=== PATIENT | male | born 1955 | race Caucasian/White ===

== ENCOUNTER → 2017-05-31 08:54 | Outpatient (CLI) | payer OTHER, SELFPAY ==
[2017-05-31 10:46] LABS: AST(SGOT) 18 U/L (15-37); Alanine Aminotransfer ALT/SGPT 25 U/L (16-61); Albumin, Serum 3.8 g/dL (3.2-5.0); Alkaline Phosphatase 79 U/L (45-117); Anion Gap 7 (5-15); BUN 18 mg/dL (7-18); BUN/Creat Ratio 14.3 RATIO (10-20); Calcium,Total 8.5 mg/dL (8.5-10.1); Chloride 110 mmol/L (98-107); Cholesterol 167 mg/dL (200); Creatinine, Serum 1.26 mg/dL (0.70-1.30); EST Glomerular Filtration Rate 61 mL/min (>60); Est Glom Filt Rate - Afr Amer 74 mL/min (>60); Glucose 104 mg/dL (74-106); High Density Lipoprotein 49 mg/dL; Potassium 3.7 mmol/L (3.5-5.1); Protein, Total 7.8 g/dL (6.4-8.2); Sodium Level 143 mmol/L (136-145); Triglycerides 81 mg/dL; Very Low Density Lipoprotein 16 mg/dL (5-40)
== END ==
PROVIDERS: Family Provider Family Medicine; PCP Family Medicine; Visit Provider Family Medicine
DX: I10 Essential (primary) hypertension (principal); E78.2 Mixed hyperlipidemia
CPT/HCPCS: 36415; 80053; 80061

== ENCOUNTER → 2018-06-01 | Outpatient (CLI) | payer MEDICARE, OTHER, SELFPAY ==
[2018-06-01 12:51] LABS: ALB/GLOB Ratio 1.1 RATIO (0.9-2.4); AST(SGOT) 20 U/L (15-37); Alanine Aminotransfer ALT/SGPT 27 U/L (16-61); Alkaline Phosphatase 92 U/L (45-117); Anion Gap 7 (5-15); BUN 23 mg/dL (7-18); BUN/Creat Ratio 17.3 RATIO (10-20); Chloride 108 mmol/L (98-107); Creatinine, Serum 1.33 mg/dL (0.70-1.30); EST Glomerular Filtration Rate 57 mL/min (>60); Est Glom Filt Rate - Afr Amer 69 mL/min (>60); Globulin 3.8 g/dL (2.2-4.2); Glucose 100 mg/dL (74-106); PSA,Total - Annual Screen 3.12 ng/mL (0.00-4.00); Potassium 4.2 mmol/L (3.5-5.1); Protein, Total 7.8 g/dL (6.4-8.2); Sodium Level 142 mmol/L (136-145)
== END | disposition home or self-care (01) ==
LOC: MFPLAB 10:36
PROVIDERS: Family Provider Family Medicine; PCP Family Medicine; Referring Provider Family Medicine; Visit Provider Family Medicine
DX: I10 Essential (primary) hypertension (principal); Z12.5 Encounter for screening for malignant neoplasm of prostate
CPT/HCPCS: 36415; 80053; 84153; G0103

== ENCOUNTER → 2018-06-13 | Outpatient (CLI) | payer MEDICARE, OTHER, SELFPAY ==
[2016-12-20 17:53] VITALS: BMI 36.0
[2018-06-13 17:55] LABS: Hematocrit 44.8 % (40-54); Hemoglobin 14.8 g/dl (13.0-16.5); Mean Corpuscular Hgb 30.8 pg (27.0-32.0); Mean Corpuscular Volume 93.1 fL (80-94); Mean Platelet Vol. 11.5 fl (6.2-12.0); Platelet Count 216 K/mm3 (150-450); RBC Distribution Width CV 12.5 % (11.6-14.6); RBC Distribution Width SD 41.9 fl (35.1-43.9); Red Blood Count 4.81 M/mm3 (4.6-6.2); White Blood Count 9.2 K/mm3 (4.4-11.0)
[2018-06-13 17:56] LABS: Scan Indicated on CBC? Y/N NO
[2018-06-13 18:17] LABS: Anion Gap 6 (5-15); BUN 19 mg/dL (7-18); BUN/Creat Ratio 15.8 RATIO (10-20); Calcium,Total 9.3 mg/dL (8.5-10.1); Chloride 107 mmol/L (98-107); EST Glomerular Filtration Rate 65 mL/min (>60); Est Glom Filt Rate - Afr Amer 78 mL/min (>60); Glucose 100 mg/dL (74-106); Magnesium 2.4 mg/dL (1.6-2.6); Potassium 4.1 mmol/L (3.5-5.1); Sodium Level 141 mmol/L (136-145); Thyroid Stim Hormone (TSH) 1.09 uIU/mL (0.358-3.74)
== END | disposition home or self-care (01) ==
LOC: MFPLAB 14:44
PROVIDERS: Family Provider Family Medicine; PCP Family Medicine; Referring Provider Family Medicine; Visit Provider Family Medicine
DX: R00.2 Palpitations (principal)
CPT/HCPCS: 36415; 80048; 83735; 84443; 85027

== ENCOUNTER → 2018-12-05 11:27 | Outpatient (CLI) | payer MEDICARE, OTHER, SELFPAY ==
[2018-12-05 14:27] LABS: AST(SGOT) 17 U/L (15-37); Alanine Aminotransfer ALT/SGPT 25 U/L (16-61); Albumin, Serum 3.8 g/dL (3.2-5.0); Alkaline Phosphatase 71 U/L (45-117); Anion Gap 5 (5-15); BUN 20 mg/dL (7-18); BUN/Creat Ratio 14.5 RATIO (10-20); Calcium,Total 9.1 mg/dL (8.5-10.1); Chloride 106 mmol/L (98-107); Cholesterol 177 mg/dL (200); Creatinine, Serum 1.38 mg/dL (0.70-1.30); EST Glomerular Filtration Rate 55 mL/min (>60); Est Glom Filt Rate - Afr Amer 66 mL/min (>60); Glucose 106 mg/dL (74-106); High Density Lipoprotein 51 mg/dL; Potassium 4.4 mmol/L (3.5-5.1); Protein, Total 7.8 g/dL (6.4-8.2); Sodium Level 140 mmol/L (136-145); Triglycerides 85 mg/dL; Very Low Density Lipoprotein 17 mg/dL (5-40)
[2018-12-06 09:23] LABS: Hepatitis C Antibody Non-Reactive (Nonreactive)
== END ==
PROVIDERS: Family Provider Family Medicine; PCP Family Medicine; Visit Provider Family Medicine
DX: Z00.00 Encounter for general adult medical examination without abnormal findings (principal); I10 Essential (primary) hypertension; E78.2 Mixed hyperlipidemia; Z12.5 Encounter for screening for malignant neoplasm of prostate; Z11.59 Encounter for screening for other viral diseases
CPT/HCPCS: 36415; 80053; 80061; 84153; 86803; G0103

== ENCOUNTER → 2018-12-13 10:09 | Outpatient (CLI) | payer MEDICARE, OTHER, SELFPAY ==
--- NOTE | 2018-12-13 10:13 | US_ITS ---
PROCEDURES: ULTRASOUND AORTA REASON FOR EXAM: Male, 63 years old. Screening for abdominal aortic aneurysm. TECHNIQUE: Ultrasound evaluation of the aorta was performed with real-time and static alexander-scale imaging. COMPARISON: None. FINDINGS: There is tortuous elongation of the abdominal aorta. Aorta measures: Proximal 1.5 cm. Middle 1.9 cm. Distal 1.9 cm. Aorta measure transversely: Proximal 1.8 cm. Middle 1.9 cm. Distal 2.1 cm. Right iliac artery measures: 1.2 cm. Right iliac artery measure transversely: 1.5 cm. Left iliac artery measures: 1.1 cm. Left iliac artery measure transversely: 1.5 cm. There is no demonstrated aneurysm.. US/Aorta IMPRESSION: Normal abdominal aorta. Electronically Signed: Anders Elias, at 15:54 EST , Service support ,
== END ==
PROVIDERS: Family Provider Family Medicine; PCP Family Medicine; Referring Provider Family Medicine; Visit Provider Family Medicine
DX: Z13.6 Encounter for screening for cardiovascular disorders (principal)
CPT/HCPCS: 76775

== ENCOUNTER → 2019-06-05 10:11 | Outpatient (CLI) | payer MEDICARE, OTHER, SELFPAY ==
[2016-12-20 17:53] VITALS: BMI 36.0
[2019-06-05 12:22] LABS: Anion Gap 6 (5-15); BUN 19 mg/dL (7-18); Calcium,Total 9.2 mg/dL (8.5-10.1); Chloride 106 mmol/L (98-107); Cholesterol 213 mg/dL (200); Creatinine, Serum 1.19 mg/dL (0.70-1.30); EST Glomerular Filtration Rate 65 mL/min (>60); Est Glom Filt Rate - Afr Amer 79 mL/min (>60); Glucose 109 mg/dL (74-106); High Density Lipoprotein 54 mg/dL; Potassium 4.1 mmol/L (3.5-5.1); Sodium Level 140 mmol/L (136-145); Triglycerides 144 mg/dL; Very Low Density Lipoprotein 29 mg/dL (5-40)
== END ==
PROVIDERS: PCP Family Medicine; Referring Provider Family Medicine; Visit Provider Family Medicine
DX: I10 Essential (primary) hypertension (principal)
CPT/HCPCS: 36415; 80048; 80061

== ENCOUNTER → 2019-12-07 11:31 | Outpatient (CLI) | payer MEDICARE, OTHER, SELFPAY ==
[2016-12-20 17:53] VITALS: BMI 36.0
[2019-12-07 15:35] LABS: ALB/GLOB Ratio 0.9 RATIO (0.9-2.4); AST(SGOT) 22 U/L (15-37); Alanine Aminotransfer ALT/SGPT 30 U/L (16-61); Albumin, Serum 3.8 g/dL (3.2-5.0); Alkaline Phosphatase 94 U/L (45-117); Anion Gap 4 (5-15); BUN 20 mg/dL (7-18); BUN/Creat Ratio 14.7 RATIO (10-20); Chloride 108 mmol/L (98-107); Cholesterol 193 mg/dL (200); Creatinine, Serum 1.36 mg/dL (0.70-1.30); EST Glomerular Filtration Rate 56 mL/min (>60); Est Glom Filt Rate - Afr Amer 67 mL/min (>60); Globulin 4.3 g/dL (2.2-4.2); Glucose 102 mg/dL (74-106); High Density Lipoprotein 51 mg/dL; PSA,Total - Annual Screen 3.91 ng/mL (0.00-4.00); Potassium 4.1 mmol/L (3.5-5.1); Protein, Total 8.1 g/dL (6.4-8.2); Sodium Level 139 mmol/L (136-145); Triglycerides 108 mg/dL; Very Low Density Lipoprotein 22 mg/dL (5-40)
== END ==
PROVIDERS: PCP Family Medicine; Referring Provider Family Medicine; Visit Provider Family Medicine
DX: E78.2 Mixed hyperlipidemia (principal); Z12.5 Encounter for screening for malignant neoplasm of prostate
CPT/HCPCS: 36415; 80053; 80061; 84153; G0103

== ENCOUNTER → 2020-06-04 11:15 | Outpatient (CLI) | payer MEDICARE, OTHER, SELFPAY ==
[2016-12-20 17:53] VITALS: BMI 36.0
[2020-06-04 15:02] LABS: Absolute Lymphocyte Count 1.81 X10^3/uL (0.83-4.51); Absolute Neutrophil Count 5.9 X10^3/uL (2.0-7.7); Basophil# 0.04 X10^3/uL; Basophil% 0.5 % (0-1); Eosinophils% 1.2 % (0-5); Hematocrit 46.7 % (40-54); Hemoglobin 14.7 g/dL (13.0-16.5); Lymphocyte # 1.81 X10^3/ul (0.83-4.51); Lymphocyte % 21.4 % (19-41); Mean Corp Hgb Conc 31.5 g/dL (32-36); Mean Corpuscular Hgb 30.6 pg (27.0-32.0); Mean Corpuscular Volume 97.1 fL (80-94); Mean Platelet Vol. 11.4 fl (6.2-12.0); Monocyte# 0.58 X10^3/uL; Monocyte% 6.9 % (0-10); NRBC Flagged by Analyzer 0 % (0-5); Neutrophil % 69.8 % (47-70); Platelet Count 249 K/mm3 (150-450); RBC Distribution Width CV 12.2 % (11.6-14.6); RBC Distribution Width SD 43.9 fl (35.1-43.9); Red Blood Count 4.81 M/mm3 (4.6-6.2); White Blood Count 8.5 K/mm3 (4.4-11.0)
[2020-06-04 15:39] LABS: ALB/GLOB Ratio 0.8 RATIO (0.9-2.4); AST(SGOT) 14 U/L (15-37); Alanine Aminotransfer ALT/SGPT 25 U/L (16-61); Albumin, Serum 3.8 g/dL (3.2-5.0); Alkaline Phosphatase 99 U/L (45-117); Anion Gap 7 (5-15); BUN 19 mg/dL (7-18); BUN/Creat Ratio 13.3 RATIO (10-20); Calcium,Total 9.6 mg/dL (8.5-10.1); Chloride 104 mmol/L (98-107); Cholesterol 178 mg/dL (200); Creatinine, Serum 1.43 mg/dL (0.70-1.30); EST Glomerular Filtration Rate 52 mL/min (>60); Est Glom Filt Rate - Afr Amer 63 mL/min (>60); Globulin 4.6 g/dL (2.2-4.2); Glucose 104 mg/dL (74-106); High Density Lipoprotein 58 mg/dL; Potassium 4.2 mmol/L (3.5-5.1); Protein, Total 8.4 g/dL (6.4-8.2); Sodium Level 139 mmol/L (136-145); Triglycerides 89 mg/dL; Very Low Density Lipoprotein 18 mg/dL (5-40)
== END ==
PROVIDERS: PCP Family Medicine; Referring Provider Family Medicine; Visit Provider Family Medicine
DX: R10.9 Unspecified abdominal pain (principal); R73.01 Impaired fasting glucose; E78.2 Mixed hyperlipidemia
CPT/HCPCS: 36415; 80053; 80061; 85025

== ENCOUNTER → 2020-06-05 10:59 | Outpatient (CLI) | payer MEDICARE, OTHER, SELFPAY ==
[2020-06-07 14:08] LABS: PROEL- Albumin 3.6 g/dL (2.9-4.4); PROEL- Alpha-1 Globulin 0.3 g/dL (0.0-0.4); PROEL- Alpha-2 Globulin 0.9 g/dL (0.4-1.0); PROEL- Beta Globulin 1.2 g/dL (0.7-1.3); PROEL- Gamma Globulin 1.2 g/dL (0.4-1.8); PROEL- Globulin, Total 3.6 g/dL (2.2-3.9); PROEL- TOTAL PROTEIN 7.2 g/dL (6.0-8.5); PROELU- Albumin, Urine 49.7 % (.); PROELU- Alpha-1-Globulin,Ur 0.8 % (.); PROELU- Alpha-2-Globulin,Ur 12.6 % (.); PROELU- Beta Globulin, Ur 20.3 % (.); PROELU- Gamma Globulin, Ur 16.7 % (.); Total Protein, Ur 15.8 mg/dL (Not Estab.)
== END ==
PROVIDERS: PCP Family Medicine; Referring Provider Family Medicine; Visit Provider Family Medicine
DX: N28.9 Disorder of kidney and ureter, unspecified (principal)
CPT/HCPCS: 36415; 84165; 84166

== ENCOUNTER → 2020-12-11 14:33 | Outpatient (CLI) | payer MEDICARE, OTHER, SELFPAY ==
[2020-12-11 18:25] LABS: ALB/GLOB Ratio 0.9 RATIO (0.9-2.4); AST(SGOT) 19 U/L (15-37); Alanine Aminotransfer ALT/SGPT 32 U/L (16-61); Albumin, Serum 3.7 g/dL (3.2-5.0); Alkaline Phosphatase 88 U/L (45-117); Anion Gap 4 (5-15); BUN 16 mg/dL (7-18); BUN/Creat Ratio 12.3 RATIO (10-20); Calcium,Total 8.9 mg/dL (8.5-10.1); Chloride 105 mmol/L (98-107); EST Glomerular Filtration Rate 58 mL/min (>60); Est Glom Filt Rate - Afr Amer 71 mL/min (>60); Globulin 4.3 g/dL (2.2-4.2); Glucose 96 mg/dL (74-106); PSA,Total - Annual Screen 3.94 ng/mL (0.00-4.00); Potassium 4.1 mmol/L (3.5-5.1); Sodium Level 139 mmol/L (136-145)
== END ==
PROVIDERS: PCP Family Medicine; Referring Provider Family Medicine; Visit Provider Family Medicine
DX: R73.01 Impaired fasting glucose (principal); Z12.5 Encounter for screening for malignant neoplasm of prostate
CPT/HCPCS: 36415; 80053; 84153; G0103

== ENCOUNTER 2021-07-02 16:09 | Outpatient (CLI) | payer MEDICARE, OTHER, SELFPAY ==
--- NOTE | 2021-07-02 16:13 | RAD_ITS ---
STUDY: X-RAY - RIGHT KNEE REASON FOR EXAM: Male, 66 years old. KNEE PAIN TECHNIQUE: 4 view(s) of the knee. COMPARISON: None. FINDINGS: Normal visualized distal femur. Normal visualized proximal tibia and fibula. Normal proximal tibiofibular articulation. Normal medial femorotibial compartment. 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 There is mild degenerative arthrosis of the patellofemoral articulation. There is no demonstrated joint effusion. The soft tissue structures are unremarkable. RAD/Knee 4 or More Views IMPRESSION: Lateral dominant degenerative changes. No significant joint effusion. Electronically Signed: Philippe Pizarro MD (Brooks) at 11:29 EDT Reading Location ID and State: [facility] / [place] , Service support ,
[2021-07-02 17:58] LABS: Erythrocyte Sedimentation Rate 6 mm/hr (0-20)
[2021-07-02 18:01] LABS: Hematocrit 44.7 % (40-54); Hemoglobin 14.7 g/dL (13.0-16.5); Mean Corp Hgb Conc 32.9 g/dL (32-36); Mean Corpuscular Hgb 31.7 pg (27.0-32.0); Mean Corpuscular Volume 96.5 fL (80-94); Mean Platelet Vol. 11.6 fl (6.2-12.0); Platelet Count 215 K/mm3 (150-450); RBC Distribution Width CV 12.5 % (11.6-14.6); RBC Distribution Width SD 43.8 fl (35.1-43.9); Red Blood Count 4.63 M/mm3 (4.6-6.2); White Blood Count 6.6 K/mm3 (4.4-11.0)
[2021-07-02 18:07] LABS: Vitamin B12 398 pg/mL (211-911); Vitamin D,25 Hydroxy 22.4 ng/mL
[2021-07-02 18:13] LABS: AST(SGOT) 20 U/L (15-37); Alanine Aminotransfer ALT/SGPT 33 U/L (16-61); Alkaline Phosphatase 85 U/L (45-117); Anion Gap 4 (5-15); BUN 18 mg/dL (7-18); BUN/Creat Ratio 14.1 RATIO (10-20); Calcium,Total 8.8 mg/dL (8.5-10.1); Chloride 106 mmol/L (98-107); Creatinine, Serum 1.28 mg/dL (0.70-1.30); EST Glomerular Filtration Rate 59 mL/min (>60); Est Glom Filt Rate - Afr Amer 72 mL/min (>60); Ferritin 232 ng/mL (26-388); Globulin 4.1 g/dL (2.2-4.2); Glucose 83 mg/dL (74-106); Iron 96 ug/dL (65-175); Magnesium 2.4 mg/dL (1.6-2.6); Potassium 4.2 mmol/L (3.5-5.1); Protein, Total 8.1 g/dL (6.4-8.2); Sodium Level 139 mmol/L (136-145); Thyroid Stim Hormone (TSH) 1.12 uIU/mL (0.358-3.74)
[2021-07-04 16:39] LABS: ANTINUCLEAR ANTIBODIES DIRECT Negative (Negative)
== END 2021-07-02 23:59 | disposition home or self-care (01) ==
LOC: MTLAB 16:11
PROVIDERS: PCP Family Medicine; Referring Provider Family Medicine; Visit Provider Family Medicine
DX: M25.561 Pain in right knee (principal); G62.9 Polyneuropathy, unspecified; E55.9 Vitamin D deficiency, unspecified
CPT/HCPCS: 36415; 73564; 80053; 82306; 82607; 82728; 83540; 83735; 84443; 85027; 85652; 86038

== ENCOUNTER → 2021-11-13 | Outpatient (CLI) | payer MEDICARE, OTHER, SELFPAY ==
[2021-11-13 12:43] LABS: Vitamin B12 1110 pg/mL (211-911); Vitamin D,25 Hydroxy 47.7 ng/mL
== END | disposition home or self-care (01) ==
LOC: MFPLAB 10:12
PROVIDERS: PCP Family Medicine; Referring Provider Family Medicine; Visit Provider Family Medicine
DX: E53.8 Deficiency of other specified B group vitamins (principal); R79.89 Other specified abnormal findings of blood chemistry
CPT/HCPCS: 36415; 82306; 82607

== ENCOUNTER → 2022-02-12 | Outpatient (CLI) | payer MEDICARE, OTHER, SELFPAY ==
[2022-02-12 12:57] LABS: ALB/GLOB Ratio 1.1 RATIO (0.9-2.4); AST(SGOT) 19 U/L (15-37); Alanine Aminotransfer ALT/SGPT 32 U/L (16-61); Alkaline Phosphatase 82 U/L (45-117); Anion Gap 7 (5-15); BUN 23 mg/dL (7-18); Calcium,Total 9.3 mg/dL (8.5-10.1); Chloride 107 mmol/L (98-107); Cholesterol 207 mg/dL (200); Creatinine, Serum 1.35 mg/dL (0.70-1.30); EST Glomerular Filtration Rate 56 mL/min (>60); Est Glom Filt Rate - Afr Amer 67 mL/min (>60); Globulin 3.7 g/dL (2.2-4.2); Glucose 106 mg/dL (74-106); High Density Lipoprotein 52 mg/dL; PSA,Total - Annual Screen 4.66 ng/mL (0.00-4.00); Potassium 4.2 mmol/L (3.5-5.1); Protein, Total 7.7 g/dL (6.4-8.2); Sodium Level 140 mmol/L (136-145); Triglycerides 80 mg/dL; Very Low Density Lipoprotein 16 mg/dL (5-40)
== END | disposition home or self-care (01) ==
LOC: MFPLAB 10:15
PROVIDERS: PCP Family Medicine; Visit Provider Family Medicine
DX: Z00.00 Encounter for general adult medical examination without abnormal findings (principal); R73.01 Impaired fasting glucose; Z12.5 Encounter for screening for malignant neoplasm of prostate; I10 Essential (primary) hypertension
CPT/HCPCS: 36415; 80053; 80061; 84153; G0103

== ENCOUNTER → 2022-07-16 | Outpatient (CLI) | payer MEDICARE, OTHER, SELFPAY ==
[2022-07-16 13:13] LABS: Cholesterol 165 mg/dL (200); High Density Lipoprotein 53 mg/dL; Triglycerides 62 mg/dL; Very Low Density Lipoprotein 12 mg/dL (5-40)
[2022-07-17 12:08] LABS: PSA, Free % 20.5 % (.)
== END | disposition home or self-care (01) ==
LOC: MFPLAB 09:55
PROVIDERS: PCP Family Medicine; Visit Provider Family Medicine
DX: E78.2 Mixed hyperlipidemia (principal); R97.20 Elevated prostate specific antigen [PSA]
CPT/HCPCS: 36415; 80061; 84153; 84154

== ENCOUNTER → 2022-10-15 | Outpatient (CLI) | payer MEDICARE, OTHER, SELFPAY ==
[2022-10-15 16:38] LABS: PSA,Total- Diagnostic 4.47 ng/mL (0.0-4.0)
== END | disposition home or self-care (01) ==
LOC: MFPLAB 11:39
PROVIDERS: PCP Family Medicine; Visit Provider Family Medicine
DX: R97.20 Elevated prostate specific antigen [PSA] (principal)
CPT/HCPCS: 36415; 84153

== ENCOUNTER → 2023-04-21 | Outpatient (CLI) | payer MEDICARE, OTHER, SELFPAY ==
[2023-04-21 13:07] LABS: AST(SGOT) 23 U/L (15-37); Alanine Aminotransfer ALT/SGPT 43 U/L (16-61); Albumin, Serum 3.8 g/dL (3.2-5.0); Alkaline Phosphatase 79 U/L (45-117); Anion Gap 8 (5-15); BUN 29 mg/dL (7-18); BUN/Creat Ratio 20.7 RATIO (10-20); Chloride 107 mmol/L (98-107); Cholesterol 171 mg/dL (200); EST Glomerular Filtration Rate 53 mL/min (>60); Est Glom Filt Rate - Afr Amer 64 mL/min (>60); Glucose 126 mg/dL (74-106); High Density Lipoprotein 48 mg/dL; PSA,Total - Annual Screen 5.38 ng/mL (0.00-4.00); Protein, Total 7.8 g/dL (6.4-8.2); Sodium Level 140 mmol/L (136-145); Thyroid Stim Hormone (TSH) 1.35 uIU/mL (0.358-3.74); Triglycerides 99 mg/dL; Very Low Density Lipoprotein 20 mg/dL (5-40)
--- OUTSIDE RECORDS SUMMARY | 2023-04-21 18:25 | XMS RPT_ITS | CCD ---
Author Name Unknown Address [address] [place] [address] Organization [facility] Care Team Providers Care Integration Specialist Name Role Phone Dipesh Mcgee Primary Care Provider Medications Completed/Discontinued Medications Medication Drug Class(es) Dates Sig (Normalized) Sig (Original) ascorbic acid 1000 mg oral tablet (1 source) Vitamin C take 1 tablet by valerie once daily Ascorbic Acid (VITAMIN C) 1,000 mg ORAL tablet Indications: Traumatic arthropathy, ankle and foot Take 1,000 mg by mouth once daily. 0 Active Problems Problem Classification Problem Date Documented Da te Episodic/Chronic Joint disorders and dislocations; trauma-related (1 source) Traumatic arthropathy of the ankle and/or foot; Translations: [Traumatic arthropathy, ankle and foot] Onset: 02-18-2010 02-18-2010 Chronic Residual codes; unclassified (1 source) Pain; Translations: [Pain] Episodic Results Test Name Value Interpretation Reference Range Facil ity Encounters Encounter Date Encounter Type Care Provider Facility Start: 04-23-2020 End: 04-23-2020 Orders Only Addison Conway Dustin Work Phone: [facility] [place] [facility] Plan of Treatment Date Care Activity Detail Author Start: 10-10-2019 Influenza vaccination INFLUENZA (#1) [facility] Start: 2018 ADVANCE DIRECTIVE DISCUSSION ADVANCE DIRECTIVE DISCUSSION [facility] Start: 2018 PNEUMOVAX AGE 65 AND OVER WITH 5YR LOOKBACK (#1) PNEUMOVAX AGE 65 AND OVER WITH 5YR LOOKBACK (#1) [facility] Start: 03-07-2013 DIABETES SCREEN DIABETES SCREEN [facility] Start: 2008 PROSTATE CANCER SCRE ENING DISCUSSION PROSTATE CANCER SCREENING DISCUSSION [facility] Start: 2003 Screening for malign ant neoplasm of colon [facility] Start: 2003 SHINGRIX VACCINE (1 of 2) GAO GRIX VACCINE (1 of 2) [facility] Start: 1988 LIPID SCREEN LIPID SCREEN [facility] Start: 1972 Urine microalbumin profile DTAP,TDAP ,TD (1 - Tdap) [facility] Start: 1971 HEPATITIS C SCREENING HEPATITIS C SC KLARISSA [facility] Start: 1965 Adult depression scr eening assessment DEPRESSION SCREENING [facility] End: 05-23-2021 Radex foot complete minimum 3 views XR FOOT GENERAL 3V AP/LAT/OBL RT Radiology Routine Pain 1 Occurrences starting 04/23/2020 until 05/23/2021 [facility] Payers Date Payer Category Payer Medicare MEDICARE MEDICAR E A AND B [id number] 2018-Present [place], [place] Medicare [id number] 2018 Private Health Insurance HU[employer]NA HU[employer]NA MEDICARE SUPPLEMENT [id number] 2018-Present Indemnity [id number] Social History Date Type Detail Facility Start: 03-07-2010 Tobacco smoking stat us NCIS Never smoker [facility] Start: 03-07-2010 Alcohol intake Current non-dr grocery deliverer of alcohol (finding) [facility] Start: 1955 Sex Assigned At Not on file [facility] Medical Equipment Procedure Code Equipment Code Equipment Origin al Text Equipment Identifier Dates Graft Bn Canc 15 ml 1-4mm Fd - [id number] Start: 03-07-2010 Progress note 04-25-2020 Note Date & Type Note Facility 04-25-2020 Note HNO ID: [id number] Author: Addison Chan Service: ? Author Type: Physician Type: Progress Notes Filed: 04/25/2020 1:05 PM Note Text: April 25, 2020 HPI: Jordy Chance is a 65 yo male with chief complaint of right plantar heel pain . Pain Descriptors: Duration: one month Severity: moderate Quality: ache Location: right plantar heel Context: worse with activity Modifying Factors: Improved with rest Supporting Subjective Information Below: Estimated body mass index is 31.57 kg/m? as calculated from the following: Height as of this encounter: 177.8 cm (5' 10 ). Weight as of this encounter: 99.8 kg (220 lb). Past Medical History PAST MEDICAL HISTORY Diagnosis Date - Fracture - GERD (gastroesophageal reflux disease) - HTN (hypertension) Surgical History: PAST SURGICAL HISTORY Procedure Laterality Date - KNEE ARTHROSCOPY Family History: FAMILY HISTORY Problem Relation Age of Onset - Cancer Father Medications: Current Outpatient Medications Medication Sig - losartan (COZAAR) 50 mg tablet Take 50 mg by mouth once daily. - atorvastatin (LIPITOR) 20 mg tablet Take 20 mg by mouth once daily. - raNITIdine HCl 300 mg capsule Take 300 mg by mouth. - ubidecarenone/vitamin E mixed (COQ10 SG 100 ORAL) Take by mouth. - Ascorbic Acid (VITAMIN C) 1,000 mg ORAL tablet Take 1,000 mg by mouth once daily. - esomeprazole (NEXIUM) 40 mg ORAL capsule Take one(1) capsule daily. - triamterene-hydrochlorothiazide 37.5-25 mg ORAL per capsule Take one(1) tablet daily. No current facility-administered medications for this visit. Allergies: Patient has no known allergies. Review Of Systems GENERAL:Negative for malaise, significant weight loss and fever HEENT:Negative for frequent or significant headaches, significant changes in vision or vision problems, significant ear problems or hearing loss, nasal discharge or nose bleeds and sore throat, difficulty swallowing, mouth lesions NECK:Negative for lumps, goiter, pain and significant neck swelling RESPIRATORY: Negative for cough, wheezing and shortness of breath CARDIOVASCULAR: Negative for chest pain, leg swelling and palpitations GASTROINTESTINAL: Negative for abdominal discomfort, blood in stools or black stools and change in bowel habits GENITOURINARY: Negative for dysuria, frequency and incontinence MUSCULOSKELETAL: Negative for joint pain or swelling, back pain, and muscle pain. NEUROLOGIC:Negative for focal numbness or weakness, headaches and dizziness. SKIN:Negative for lesions, rash, and itching. PSYCHIATRIC: Negative for sleep disturbance, mood disorder and recent psychosocial stressors. HEMATOLOGIC/LYMPHATIC/IMMUNOLOGIC:Negativ e for prolonged bleeding, bruising easily, and swollen nodes. ENDOCRINE: Negative for cold or heat intolerance, polyuria, polydipsia and goiter. Physical Exam: Basic physical examination reveals the patient to be in no acute distress. The patient is alert and oriented x 3 Mood and affect are appropriate. Head is atraumatic, normocephalic. Neck ROM grossly intact. Mucous membranes are moist. Eyes, ears, and nose are normal in appearance. Hearing is grossly intact. Breathing is unlabored with grossly normal chest motion. Limited Upper Extremity Exam: Shoulders with grossly intact ROM and strength, no obvious deformity. Elbows with grossly intact ROM and strength, no obvious deformity. Hand and wrist with grossly intact ROM and strength, no obvious deformity. Focused orthopaedic examination reveals the following: Skin intact without lesions. Healed midfoot incisions Mild TTP plantar heel Arch maintained Imaging: Prior midfoot fusion, hardware intact Assessment and Plan: Right heel pain He likely has plantar fasciitis We discussed PF stretching, heel pads, avoidance of barefoot walking, Voltaren gel US guided injection if symptoms persist. Return to clinic: prn X-Ray's at next visit: No PCP: Dipesh Mcgee MD [address] [place] [id number] FELLOW / RESIDENT: No fellow or resident assisted in this office visit. I spent approximately 30 minutes in direct [id number] contact with this patient and more than 50% of the duration of this visit was spent performing direct [id number] counseling. Addison Chan MD [facility] Progress note 04-25-2020 Note Date & Type Note Facility 04-25-2020 Note HNO ID: [id number] Author: Leif Perez (Rt) Service: ? Author Type: Fishing Floats Assembler Type: Progress Notes Filed: 04/25/2020 12:29 PM Note Text: Radiology Service Progress Note PATIENT NAME: Jordy Chance DATE OF SERVICE: April 25, 2020 TIME: 12:29 PM PATIENT IDENTITY VERIFICATION COMPLETED USING TWO (2) IDENTIFIERS: Name and Date of confirmed by patient verbally. FALL SCREENING: Has the patient had 2 falls in the last year or 1 fall with injury or currently using an Ambulatory Assistive Device (Walker, Cane, Wheelchair, Crutches, etc.)? No PATIENT GENDER DATA: Male PATIENT RELEVANT IMPLANT DATA REVIEWED: Not Applicable RADIOLOGY DEPARTMENT: General X-ray: Exam(s) Completed: Lower Extremity X-Ray(s): Foot, Right: PERIPHERAL IV DATA: Not applicable SIGNED BY: Michael Ximena, RT April 25, 2020 12:29 PM [facility] Assessments Diagnosis Pain- Primary Generalized pain Summary Purpose Family History No Family History Records Found Advance Directives No Advanced Directives Records Found Additional Source Comments Source Comments (unrecognize d section and content) In the event this informatio n is protected by the Federal Confidentiality of Alcohol and Drug Abuse Patient Records regulations: The Federal rules restrict any use of the information to criminally investigate or prosecute any alcohol or drug abuse patient.[facility] (unrecognized sect ion and content) No Status Records Found INFORMATION SOURCE (unrecogn ized section and content) FOR RECORDS PERTAINING TO PATIENTS WHO ARE OR HAVE BEEN ENROLLED IN A CHEMICAL DEPENDENCY/SUBSTANCEABUSE PROGRAM, SOME INFORMATION MAY BE OMITTED. This clinical summary was aggregated from multiple sources. Caution should be exercised in using it in the provision of clinical care. This summary normalizes information from multiple sources, and as a consequence, information in this document may materially change the coding, format and clinical context of patient data. In addition, data may be omitted in some cases. CLINICAL DECISIONS SHOULD BE BASED ON THE PRIMARY CLINICAL RECORDS. [facility]. provides no warranty or guarantee of the accuracy or completeness of information in this document.
== END | disposition home or self-care (01) ==
LOC: MFPLAB 10:54
PROVIDERS: PCP Family Medicine; Visit Provider Family Medicine
DX: E11.65 Type 2 diabetes mellitus with hyperglycemia (principal); R97.20 Elevated prostate specific antigen [PSA]; Z12.5 Encounter for screening for malignant neoplasm of prostate
CPT/HCPCS: 36415; 80053; 80061; 84153; 84403; 84443; G0103

== ENCOUNTER 2023-09-18 12:22 | Inpatient (IN) | payer MEDICARE, OTHER, SELFPAY ==
[2023-09-18 12:23] VITALS: BP 155/79; PULSE 57; RESP 16; TEMP 36.3; O2SAT 97; BMI 34.0
--- NOTE | 2023-09-18 12:42 | CT_ITS ---
EXAM: CT ABDOMEN AND PELVIS WITHOUT INTRAVENOUS CONTRAST CLINICAL INDICATION: Kidney Stone TECHNIQUE: Helically acquired images were obtained of the abdomen and pelvis without intravenous contrast. This CT exam was performed using one or more of the following dose reduction techniques: automated exposure control, adjustment of the mA and/or kV according to patient size, and/or use of iterative reconstruction technique. RADIATION DOSE: CTDIvol = 15.15 mGy, DLP = 885.85 mGy-cm COMPARISON: CT abdomen and pelvis without contrast 09/27/2013. FINDINGS: LOWER THORAX: Mildly prominent hiatal hernia. Lung bases are clear. No cardiomegaly. No significant pericardial effusion. ABDOMEN: LIVER: Unremarkable. Homogeneous. GALLBLADDER AND BILE DUCTS: Multiple tiny radiolucent gallstones layering in the dependent portion of the gallbladder fossa. No intrahepatic or extrahepatic biliary ductal dilatation. No gallbladder distention or wall edema. PANCREAS: Unremarkable. No focal cystic mass. SPLEEN: Unremarkable. Normal size without focal cystic or solid mass. ADRENALS: Unremarkable. No nodules. KIDNEYS AND URETERS: Mild right hydronephrosis and mild right hydroureter secondary to 2 mm partially obstructing stone in the right distal ureter. This is a new finding. 3 mm nonobstructing stone in the left kidney. No left hydronephrosis. Small vascular calcification in the left renal hilum. Normal renal size and position. STOMACH AND BOWEL: Mildly prominent small hiatal hernia. Normal small bowel. Small diverticula along the sigmoid colon without diverticulitis. No stomach or bowel distention. PELVIS: APPENDIX: Normal appendix. BLADDER: Unremarkable. No suspicious abnormality of the underdistended urinary bladder. REPRODUCTIVE: Unremarkable as visualized. No mass. ABDOMEN and PELVIS: INTRAPERITONEAL SPACE: Unremarkable. No ascites or other fluid collection. No free air. BONES/JOINTS: Pronounced L5-S1 degenerative disc space height narrowing is unchanged. Bridging anterior marginal spurs in the lower thoracic spine. No acute fractures. No lytic or blastic lesions. SOFT TISSUES: Unremarkable. No discrete abdominal or pelvic wall hernia. VASCULATURE: Unremarkable. Abdominal aorta is non-dilated. LYMPH NODES: Unremarkable. No enlarged lymph nodes. CT/Abdomen/Pelvis without Cont IMPRESSION: 1. Mild right hydronephrosis and mild right hydroureter secondary to 2 mm partially obstructing stone in the right distal ureter. 2. 3 mm nonobstructing stone in the left kidney. 3. Sigmoid diverticulosis without diverticulitis. 4. Mildly prominent small hiatal hernia. 5. Multiple small radiolucent gallstones layering in the dependent portions of the gallbladder fossa. These calculi were present previously and have increased slightly in number. Electronically Signed: Moises Celestin MD at 13:18 EDT ,
[2023-09-18 12:56] LABS: Absolute Lymphocyte Count 2.01 X10^3/uL (0.83-4.51); Absolute Neutrophil Count 4.8 X10^3/uL (2.0-7.7); Basophil# 0.04 X10^3/uL; Basophil% 0.5 % (0-1); Eosinophil# 0.15 X10^3/uL; Hematocrit 43.6 % (40-54); Hemoglobin 14.5 g/dL (13.0-16.5); Lymphocyte # 2.01 X10^3/ul (0.83-4.51); Lymphocyte % 26.2 % (19-41); Mean Corp Hgb Conc 33.3 g/dL (32-36); Mean Corpuscular Hgb 31.3 pg (27.0-32.0); Mean Platelet Vol. 11.5 fl (6.2-12.0); Monocyte# 0.63 X10^3/uL; Monocyte% 8.2 % (0-10); NRBC Flagged by Analyzer 0 % (0-5); Neutrophil # 4.81 X10^3/uL (2.7-7.7); Neutrophil % 62.7 % (47-70); Platelet Count 223 K/mm3 (150-450); RBC Distribution Width CV 12.5 % (11.6-14.6); RBC Distribution Width SD 43.6 fl (35.1-43.9); Red Blood Count 4.64 M/mm3 (4.6-6.2); White Blood Count 7.7 K/mm3 (4.4-11.0)
--- NOTE | 2023-09-18 12:57 | EX.ED.DYSGE1 ---
HPI History of Present Illness Chief Complaint: Flank Pain Narrative Narrative: Patient is a 3-year-old male with history of kidney stones, hypertension, GERD, hyperlipidemia and questionable CKD presenting with sudden onset of right-sided flank pain. He states he woke up felt fine and cold minutes later started having this pain in his right flank/CVA area. States the pains been constant but fluctuates in intensity. Denies any radiation. Denies any urinary symptoms. Denies any nausea or vomiting. Did not take anything for pain including Tylenol ibuprofen prior to arrival. States this feels like his prior kidney stones. Denies any history of requiring stenting or other interventions for his kidney stones. Does also have a history of diverticulitis states this feels different. No other complaints or concerns at this time. [facility] Medical History (Updated 09/18/23 @ 16:[address] Consuelo Mitchell, ) Diverticulitis Kidney stones High cholesterol HTN (hypertension) Home Medications ?Medication ?Instructions ?Recorded ?Last Taken ?Type atorvastatin 40 mg tablet 40 mg PO DAILY 09/18/23 09/18/23 History cholecalciferol (vitamin D3) 125 125 mcg PO DAILY 09/18/23 09/18/23 History mcg (5,000 unit) tablet (Vitamin D3) coenzyme Q10 100 mg capsule 100 mg PO DAILY 09/18/23 09/18/23 History (CoQ-10) dapagliflozin propanediol 5 mg 5 mg PO DAILY 09/18/23 09/18/23 History tablet losartan 100 mg tablet 100 mg PO DAILY high blood pressure 09/18/23 09/18/23 History mecobalamin (vitamin B12) 1 tab PO DAILY 09/18/23 09/18/23 History Allergy/AdvReac Type Severity Reaction Status Date / Time No Known Allergies Allergy Verified 09/18/23 12:23 Surgical History (Updated 09/18/23 @ 15:18 by Misti Suarez) H/O knee surgery Social History Smoking Status: Never smoker ROS ROS ED Constitutional Constitutional ED: Denies chills or fever(s) Cardiovascular Cardiovascular: Denies chest pain Respiratory/Chest Respiratory/Chest: Denies cough or other Gastrointestinal Gastrointestinal: Reports other Details: right flank pain ; Denies abdominal pain, constipation, diarrhea, nausea or vomiting Genitourinary Genitourinary ED: Denies dysuria or hematuria Musculoskeletal Musculoskeletal: Denies arthralgias or myalgias Integumentary Denies rash Neurologic Neurologic: Denies headache(s) EXAM Physical Exam Const Vital Signs: 09/18/23 12:23 Temperature 97.3 F L Temperature Source Temporal Pulse Rate 57 L Respiratory Rate 16 Blood Pressure 155/79 H Blood Pressure Mean 104 Pulse Ox 97 Oxygen Delivery Method Room Air Positive well nourished and well developed General Appearance ED: well developed and NAD HEENT Reports moist mucous membranes Neck supple Chest Wall inspection of chest normal and palpation of chest normal Resp normal respiratory effort and clear to auscultation bilaterally Cardio regular rate and regular rhythm GI normal to inspection, nondistended, normoactive bowel sounds, non-tender and non-distended Palpation: soft; Negative for tender or guarding Back/Spine no CVA tenderness Back/Spine Narrative: Points to his right CVA area as the area of his pain but is not reproducible with palpation. No overlying rash. Extremity Negative for normal to inspection General Extremety ED: Negative for edema General Extremity: Negative for edema Neuro oriented x3 Sensorium / Orientation: alert Motor Exam: Negative for general weakness Psych mental status grossly normal Skin no rashes or lesions noted and no wounds MDM MDM MDM Narrative Medical decision making narrative: Patient is a 68-year-old male with history of kidney stones presenting with right flank pain. Patient initially declines anything for pain or nausea in the emergency room but is agreeable to IV fluids. While his pain worsens in the ER and he then accepts morphine and Zofran. Differential includes was not limited to urinary tract infection, kidney stone, pyelonephritis and biliary colic. CBC largely normal. CMP shows elevation of his creatinine of 2.05. His baseline appears to be 1.4.CT abdomen pelvis shows a 2 mm distal partial obstructing stone of the right ureter. In addition he has nonobstructing left kidney stone as well as gallstones. I do not think his presentation is consistent with gallstones. No physis of diverticulitis which she was concerned about. Because of patient's KIN do think he would benefit from from admission and IV hydration. Kidney stone is small and I do not think will require any surgical removal however I did discuss the case with Dr. Coreas (patient's previously seen him in office) and he is available if needed. Patient is admitted to medicine service and case discussed with main physician, Dr. Godfrey. Patient agreeable with plan of care. Lab Data Attestation: I reviewed the patient's lab results. Labs: Laboratory Results - last 24 hr 09/18/23 12:29 WBC 7.7 RBC 4.64 Hgb 14.5 Hct 43.6 MCV 94.0 MCH 31.3 MCHC 33.3 RDW Std Deviation 43.6 RDW Coeff of Zi 12.5 Plt Count 223 MPV 11.5 Immature Gran % (Auto) 0.400 Neut % (Auto) 62.7 Lymph % (Auto) 26.2 Jessamine % (Auto) 8.2 Eos % (Auto) 2.0 Baso % (Auto) 0.5 Absolute Neuts (auto) 4.8 Absolute Lymphs (auto) 2.01 Nucleated RBC % 0 Sodium 142 Potassium 3.9 Chloride 111 H Carbon Dioxide 25.0 Anion Gap 6 BUN 32 H Creatinine 2.05 H Estim Creat Clear Calc 41.17 Est GFR (MDRD) Af Amer 41 L Est GFR (MDRD) Non-Af 34 L BUN/Creatinine Ratio 15.6 Glucose 134 H Calcium 8.9 Total Bilirubin 0.90 Direct Bilirubin 0.21 AST 24 ALT 30 Alkaline Phosphatase 100 Total Protein 7.7 Albumin 3.7 Globulin 4.0 Radiography Diagnostic Testing: Clinical Impression(s) from Imaging Studies Abdomen/Pelvis CT 09/18/23 12:42 IMPRESSION: 1. Mild right hydronephrosis and mild right hydroureter secondary to 2 mm partially obstructing stone in the right distal ureter. 2. 3 mm nonobstructing stone in the left kidney. 3. Sigmoid diverticulosis without diverticulitis. 4. Mildly prominent small hiatal hernia. 5. Multiple small radiolucent gallstones layering in the dependent portions of the gallbladder fossa. These calculi were present previously and have increased slightly in number. Electronically Signed: Moises Celestin MD at 13:18 EDT , Management Discussion w/another healthcare provider: Hospitalist and Paper Tube Grader Discharge Plan Dx/Rx/DC Orders Clinical Impression: KIN (acute kidney injury), Renal colic on right side, Hydroureter, right, Urinary tract obstruction by kidney stone Disposition Disposition: Acute Care Hospital [facility] Discharge Date/Time: 09/18/23 15:03
[2023-09-18 13:09] LABS: AST(SGOT) 24 U/L (15-37); Alanine Aminotransfer ALT/SGPT 30 U/L (16-61); Albumin, Serum 3.7 g/dL (3.2-5.0); Alkaline Phosphatase 100 U/L (45-117); Anion Gap 6 (5-15); BUN 32 mg/dL (7-18); BUN/Creat Ratio 15.6 RATIO (10-20); Bilirubin, Direct 0.21 mg/dL (0.00-0.30); Calcium,Total 8.9 mg/dL (8.5-10.1); Chloride 111 mmol/L (98-107); Creatinine, Serum 2.05 mg/dL (0.70-1.30); EST Glomerular Filtration Rate 34 mL/min (>60); Est Glom Filt Rate - Afr Amer 41 mL/min (>60); Estimated Creatinine Clearance 41.17 ml/min; Glucose 134 mg/dL (74-106); Potassium 3.9 mmol/L (3.5-5.1); Protein, Total 7.7 g/dL (6.4-8.2); Sodium Level 142 mmol/L (136-145)
[2023-09-18] MEDS: 0.9% Normal Saline (1000mL) 1,000 ML 250 ML IV (13:22)
[2023-09-18] MEDS: Morphine 4 MG/ML Syringe IV (13:31)
[2023-09-18] MEDS: Ondansetron 4 MG/2 ML Vial IV ×2 (13:31→15:35)
--- NOTE | 2023-09-18 14:14 | PCM.HP.STD ---
HPI - General General Date of Admission: 09/18/23 Date of Service: 09/18/23 Chief Complaint: Right flank pain HPI Narrative TINY ALVARADO, is a 68 M who presented to [facility] ED on 09/18/2023 with right flank pain. Patient has prior history of kidney stones and suspected he might have another one so he came in for further evaluation. CT abdomen pelvis showed mild right hydronephrosis and mild right hydroureter secondary to 2 mm partially obstructing stone in the right distal ureter. Also showed a 3 mm nonobstructing stone in the left kidney with no hydronephrosis. Patient was afebrile and hemodynamically stable on room air. He has history of CKD stage IIIa with baseline creatinine around 1.4 and creatinine on admit was 2.05 with BUN 32. Patient had fairly significant pain with some nausea and was given doses of IV morphine and IV Zofran in the ED with mild to moderate relief of symptoms. He and were unsure if he needed admission but he noted that it had been several years since his last kidney stone and his recent p.o. intake has been poor, and he was concerned about how his symptoms could progress if he is unable to pass a stone. Hospitalist was then contacted for admission. I saw the patient at bedside in the ED, was present. Patient was sitting up fairly comfortably in bed, in no acute distress. He was reporting mild right-sided flank pain that was wrapping around to the right abdominal area. Stated that the pain seemed to be shifting more forward over the past hour or so. He did states that the IV pain and nausea medications were helpful for him. He denies any fevers or chills. He did report some generalized abdominal fullness and stated he had minimal appetite. He denied any pain with urination or difficulty urinating. Denied any hematuria. His prior kidney stones all past on their own, has never required stent placement or lithotripsy. He otherwise denied any acute concerns. [facility] Medical History (Updated 09/18/23 @ 16:[address] Consuelo Mitchell, DO) Diverticulitis Kidney stones High cholesterol HTN (hypertension) Home Medications ?Medication ?Instructions ?Recorded ?Last Taken ?Type atorvastatin 40 mg tablet 40 mg PO DAILY 09/18/23 09/18/23 History cholecalciferol (vitamin D3) 125 125 mcg PO DAILY 09/18/23 09/18/23 History mcg (5,000 unit) tablet (Vitamin D3) coenzyme Q10 100 mg capsule 100 mg PO DAILY 09/18/23 09/18/23 History (CoQ-10) dapagliflozin propanediol 5 mg 5 mg PO DAILY 09/18/23 09/18/23 History tablet losartan 100 mg tablet 100 mg PO DAILY high blood pressure 09/18/23 09/18/23 History mecobalamin (vitamin B12) 1 tab PO DAILY 09/18/23 09/18/23 History Allergy/AdvReac Type Severity Reaction Status Date / Time No Known Allergies Allergy Verified 09/18/23 12:23 Surgical History (Updated 09/18/23 @ 15:18 by Misti Suarez) H/O knee surgery Social History Smoking Status: Never smoker ROS Constitutional Constitutional: Denies chills, fatigue, fever(s) or weakness Eyes Eyes: Denies change in vision Cardiovascular Cardiovascular: Denies chest pain Respiratory/Chest Respiratory/Chest: Denies shortness of breath at rest Gastrointestinal Gastrointestinal: Reports abdominal pain and nausea; Denies constipation, diarrhea or vomiting Genitourinary Genitourinary: Reports other Details: Right-sided flank pain ; Denies burning urination, difficulty urinating, dysuria or urinary frequency Musculoskeletal Musculoskeletal: Denies arthralgias or myalgias Neurologic Neurologic: Denies dizziness, focal weakness or headache(s) Vital Signs Vital Signs Vital Signs: 09/18/23 12:23 Temperature 97.3 F L Temperature Source Temporal Pulse Rate 57 L Respiratory Rate 16 Blood Pressure 155/79 H Blood Pressure Mean 104 Pulse Ox 97 Oxygen Delivery Method Room Air Weight Weight: 107.501 kg Body Mass Index (BMI) 34.0 Physical Exam Const alert, oriented x3 and no apparent distress Constitutional Narrative: Pleasant elderly male, obese, sitting up fairly comfortably in bed, conversing normally, in no acute distress. General Appearance: cooperative and comfortable HEENT normocephalic, head/scalp atraumatic, hearing grossly normal bilaterally and nasal mucous membranes and turbinates normal HEENT Narrative: Mildly dry mucous membranes. Eyes PERRL, EOMs intact bilaterally and conjunctivae normal Neck full ROM Chest inspection of chest normal Resp normal respiratory effort, normal air movement, no use of accessory muscles and clear to auscultation bilaterally Cardio regular rate, regular rhythm, no murmurs and peripheral pulses 2+ throughout GI normal to inspection, nondistended, normoactive bowel sounds, soft to palpation, non-tender and non-distended Narrative: Mild right-sided CVA tenderness wrapping to right lower abdomen. No suprapubic tenderness. Bladder / Kidney Exam: bladder normal to palpation Back/Spine normal ROM Extremity normal to inspection, full ROM and no pedal edema Skin no rashes or lesions noted Neuro moves all extremities and no focal motor deficits Speech: speech normal Psych mental status grossly normal Results Lab / Micro Data 09/18/23 12:29 09/18/23 12:29 Labs: Laboratory Results - last 24 hr 09/18/23 12:29: WBC 7.7, RBC 4.64, Hgb 14.5, Hct 43.6, MCV 94.0, MCH 31.3, MCHC 33.3, RDW Std Deviation 43.6, RDW Coeff of Zi 12.5, Plt Count 223, MPV 11.5, Immature Gran % (Auto) 0.400, Neut % (Auto) 62.7, Lymph % (Auto) 26.2, [place] % (Auto) 8.2, Eos % (Auto) 2.0, Baso % (Auto) 0.5, Absolute Neuts (auto) 4.8, Absolute Lymphs (auto) 2.01, Nucleated RBC % 0, Sodium 142, Potassium 3.9, Chloride 111 H, Carbon Dioxide 25.0, Anion Gap 6, BUN 32 H, Creatinine 2.05 H, Estim Creat Clear Calc 41.17, Est GFR (MDRD) Af Amer 41 L, Est GFR (MDRD) Non-Af 34 L, BUN/Creatinine Ratio 15.6, Glucose 134 H, Calcium 8.9, Total Bilirubin 0.90, Direct Bilirubin 0.21, AST 24, ALT 30, Alkaline Phosphatase 100, Total Protein 7.7, Albumin 3.7, Globulin 4.0 Imaging Radiology Impression Abdomen/Pelvis CT 09/18/23 12:42 IMPRESSION: 1. Mild right hydronephrosis and mild right hydroureter secondary to 2 mm partially obstructing stone in the right distal ureter. 2. 3 mm nonobstructing stone in the left kidney. 3. Sigmoid diverticulosis without diverticulitis. 4. Mildly prominent small hiatal hernia. 5. Multiple small radiolucent gallstones layering in the dependent portions of the gallbladder fossa. These calculi were present previously and have increased slightly in number. Electronically Signed: Moises Celestin MD at 13:18 EDT , Assessment & Plan Assessment/Plan (1) Urinary tract obstruction by kidney stone: (2) Hydroureter, right: (3) Renal colic on right side: (4) KIN (acute kidney injury): PLAN: Plan Patient is a 68-year-old male who presented to [facility] ED on 09/18/2023 with right-sided flank pain. 1. Right-sided nephrolithiasis with mild hydronephrosis, history of nephrolithiasis ? Admit under inpatient status to [facility]. Urology consulted. ED did discuss with Dr. Coreas who noted the small stone would likely pass on its own but he was available if needed. CT abdomen pelvis showed 2 mm partially obstructing stone in distal right ureter with mild right hydronephrosis. Will treat with continuous IV fluids through tomorrow morning, Flomax daily and pain control with p.o. oxycodone and IV Dilaudid as needed (no Toradol given worsened kidney function as noted below). IV Zofran ordered for nausea control. Afebrile, no leukocytosis and hemodynamically stable; awaiting results of UA but will hold on treatment with antibiotics at this time. 2. KIN on CKD stage III ? Creatinine 2.05 on admit, baseline appears to be around 1.4. Suspect prerenal etiology from decreased p.o. intake over last few days. Giving IV fluids noted above. Follow-up a.m. BMP and monitor urine output. 3. Cholelithiasis ? CT abdomen pelvis showed multiple small radiolucent gallstones in the gallbladder fossa, increased in number from previous CT scan back in 2013 but no obstructing symptoms noted and LFTs normal. No treatment or further monitoring needed. Chronic medical conditions: ? Obesity: BMI 32 on admit. Complicates hospital course, care and prognosis. ? Hypertension: Holding home losartan for now. ? Hyperlipidemia: Continue home atorvastatin. DVT prophylaxis: Heparin subcu CODE STATUS: Full code, verified Expected disposition: Home, 2 to 3 days Total clinical time spent by myself addressing the patient's medical issues, reviewing all the data, and collaborating with patient's care team: 55 minutes. Charges/Coding Visit Charges Inpatient E&M: 52285 Init Hosp L2
[2023-09-18 14:22] VITALS: BP 147/87; PULSE 60; RESP 18; TEMP 36.7; O2SAT 97
[2023-09-18 15:06] VITALS: BMI 32.2
[2023-09-18 15:12] VITALS: BP 176/84; PULSE 52; RESP 18; TEMP 36.6; O2SAT 100
[2023-09-18 15:27] VITALS: O2SAT 94
[2023-09-18] MEDS: Lactated Ringers 1,000 ML 100 ML IV (15:33)
[2023-09-18] MEDS: 0.9% Saline Lock 10 ML Syringe IV (15:33)
[2023-09-18] MEDS: HYDROmorphone 0.5 MG/0.5 ML SYRINGE IV ×2 (15:33→19:51)
[2023-09-18] MEDS: Tamsulosin HCl 0.4 MG Capsule PO (15:55)
[2023-09-18] MEDS: oxyCODONE 5 MG Tablet PO (18:05)
[2023-09-18] MEDS: Acetaminophen 325 MG Tablet 650 MG PO (19:52)
[2023-09-18] MEDS: Atorvastatin Calcium 10 MG Tablet PO (19:54)
[2023-09-18 21:47] VITALS: BP 164/79; PULSE 63; RESP 18; TEMP 36.6; O2SAT 97
[2023-09-19] VITALS (9 sets, daily range): BP systolic 137–156; BP diastolic 70–101; PULSE 60–71; RESP 18–20; TEMP 36.4–37.4; O2SAT 93–100
[2023-09-19] MEDS: HYDROmorphone 0.5 MG/0.5 ML SYRINGE IV ×3 (04:22→18:49)
[2023-09-19 06:01] LABS: Hematocrit 41.8 % (40-54); Hemoglobin 13.6 g/dL (13.0-16.5); Mean Corp Hgb Conc 32.5 g/dL (32-36); Mean Corpuscular Hgb 31.4 pg (27.0-32.0); Mean Corpuscular Volume 96.5 fL (80-94); Platelet Count 192 K/mm3 (150-450); RBC Distribution Width CV 12.2 % (11.6-14.6); RBC Distribution Width SD 43.5 fl (35.1-43.9); Red Blood Count 4.33 M/mm3 (4.6-6.2); White Blood Count 12.5 K/mm3 (4.4-11.0)
[2023-09-19] MEDS: oxyCODONE 5 MG Tablet PO ×3 (06:38→23:51)
[2023-09-19] MEDS: Ondansetron 4 MG/2 ML Vial IV (06:38)
[2023-09-19] MEDS: Acetaminophen 325 MG Tablet 650 MG PO ×2 (06:38→23:50)
--- NOTE | 2023-09-19 08:23 | PN.HOSP_ITS ---
Subjective Subjective Doing well, still having right sided abdominal pain and flank pain Objective Data Objective Data Vital Signs: Vital Signs Temp Pulse Resp BP Pulse Ox O2 Del Method 97.6 F L 64 18 156/75 H 96 Room Air 09/19/23 06:36 09/19/23 06:36 09/19/23 06:36 09/19/23 06:36 09/19/23 07:33 09/19/23 07:33 Oxygen Delivery Method Room Air Weight: 231 lb 4.8 oz Body Mass Index (BMI) 32.2 Intake & Output: Intake and Output for Last 24 Hours 09/18/23 09/19/23 09/20/23 03:59 03:59 03:59 Intake Total 2100 / 2100 Output Total 250 / 250 Balance 1850 / 1850 Lab / Micro Data 09/19/23 05:25 09/18/23 12:29 Labs: Laboratory Results - last 24 hr 09/18/23 12:29: WBC 7.7, RBC 4.64, Hgb 14.5, Hct 43.6, MCV 94.0, MCH 31.3, MCHC 33.3, RDW Std Deviation 43.6, RDW Coeff of Zi 12.5, Plt Count 223, MPV 11.5, Immature Gran % (Auto) 0.400, Neut % (Auto) 62.7, Lymph % (Auto) 26.2, [place] % (Auto) 8.2, Eos % (Auto) 2.0, Baso % (Auto) 0.5, Absolute Neuts (auto) 4.8, Absolute Lymphs (auto) 2.01, Nucleated RBC % 0, Sodium 142, Potassium 3.9, C hloride 111 H, Carbon Dioxide 25.0, Anion Gap 6, BUN 32 H, Creatinine 2.05 H, Estim Creat Clear Calc 41.17, Est GFR (MDRD) Af Amer 41 L, Est GFR (MDRD) Non-Af 34 L, BUN/Creatinine Ratio 15.6, Glucose 134 H, Calcium 8.9, Total Bilirubin 0.90, Direct Bilirubin 0.21, AST 24, ALT 30, Alkaline Phosphatase 100, Total Protein 7.7, Albumin 3.7, Globulin 4.0 09/19/23 05:25: WBC 12.5 H, RBC 4.33 L, Hgb 13.6, Hct 41.8, MCV 96.5 H, MCH 31.4, MCHC 32.5, RDW Std Deviation 43.5, RDW Coeff of Zi 12.2, Plt Count 192, MPV 11.0 Radiography Diagnostic Testing: Radiology Impression Abdomen/Pelvis CT 09/18/23 12:42 IMPRESSION: 1. Mild right hydronephrosis and mild right hydroureter secondary to 2 mm partially obstructing stone in the right distal ureter. 2. 3 mm nonobstructing stone in the left kidney. 3. Sigmoid diverticulosis without diverticulitis. 4. Mildly prominent small hiatal hernia. 5. Multiple small radiolucent gallstones layering in the dependent portions of the gallbladder fossa. These calculi were present previously and have increased slightly in number. Electronically Signed: Mioses Celestin MD at 13:18 EDT , Physical Exam Narrative General: Alert, Oriented x3, Cooperative, No apparent distress HEENT: Atraumatic, PERRLA, EOMI, Normocephalic Oral: Moist Mucosa Neck: Supple, No JVD Lungs: Diminished, Normal air movement, No rhonchi, No wheeze, No rales Cardiovascular: Regular rate, Regular Rhythm, Normal S1, Normal S2, No murmurs Abdomen: Soft, Non Tender, Non-Distended, No Hepato-splenomegaly Extremities: No edema, Capillary Refill Less than 3 Seconds Skin: No rashes, No breakdown Musculoskeletal: No Tenderness to Palpation of Joints or Extremities Neurological: No focal neurological deficits, Motor Exam 5/5 strength throughout, Sensory exam intact to light touch and pain Psych/Mental Status: Normal Affect, Appropriate Assessment & Plan Assessment/Plan (1) Urinary tract obstruction by kidney stone: (2) Hydroureter, right: (3) Renal colic on right side: (4) KIN (acute kidney injury): PLAN: Plan 1. Right-sided nephrolithiasis with mild hydronephrosis/KIN on CKD 3A ? 2 mm stone in the right ureter likely will pass on its own ? Continue with IV fluids, pain medication and Zofran ? Continue with Flomax ? He does have a leukocytosis today so we will obtain a UA 2. Cholelithiasis ? He has multiple gallstones ? Will need to follow-up as an outpatient as he has no current symptoms 3. Essential HTN/HLD ? Will continue to hold losartan given that he had a slight KIN ? Will monitor make adjustments as necessary ? Continue with Lipitor DVT: Heparin Charges/Coding Visit Charges Inpatient E&M: 56210 Subs Hosp L2
[2023-09-19 08:29] LABS: Anion Gap 8 (5-15); BUN 28 mg/dL (7-18); BUN/Creat Ratio 12.7 RATIO (10-20); Calcium,Total 8.6 mg/dL (8.5-10.1); Chloride 110 mmol/L (98-107); EST Glomerular Filtration Rate 32 mL/min (>60); Est Glom Filt Rate - Afr Amer 38 mL/min (>60); Estimated Creatinine Clearance 38.51 ml/min; Glucose 132 mg/dL (74-106); Potassium 4.2 mmol/L (3.5-5.1); Sodium Level 140 mmol/L (136-145)
[2023-09-19] MEDS: Aspirin 81 MG TAB.CHEW PO (09:54)
--- NOTE | 2023-09-19 10:02 | CON.PCM.UR_ITS ---
Assessment & Plan Assessment/Plan (1) Hydroureter, right: PLAN: Very small stone in the distal right ureter very likely can a pass on its own no intervention planned from my standpoint we will continue to monitor.6 (2) Renal colic on right side: HPI Consult Data Date of Consult: 09/19/23 HPI Narrative Reason for Consultation: Right ureteral calculi HPI Narrative: TINY ALVARADO, is a 68 M who presents to the hospital with acute renal ins injury insufficiency right hydronephrosis due to a very tiny stone in the distal right ureter he is very likely going to pass the stone so no surgical intervention is planned on my part. Difficult to tell if he is already passed the stone and some pain in the right side but no fevers or chills he looks stable I would recommend we can advance him to diet as tolerated continue IV hydration and strain for the stone and will continue with conservative measures [facility] Medical History Diverticulitis Kidney stones High cholesterol HTN (hypertension) Home Medications ?Medication ?Instructions ?Recorded ?Last Taken ?Type atorvastatin 40 mg tablet 40 mg PO DAILY 09/18/23 09/18/23 History cholecalciferol (vitamin D3) 125 125 mcg PO DAILY 09/18/23 09/18/23 History mcg (5,000 unit) tablet (Vitamin D3) coenzyme Q10 100 mg capsule 100 mg PO DAILY 09/18/23 09/18/23 History (CoQ-10) dapagliflozin propanediol 5 mg 5 mg PO DAILY 09/18/23 09/18/23 History tablet losartan 100 mg tablet 100 mg PO DAILY high blood pressure 09/18/23 09/18/23 History mecobalamin (vitamin B12) 1 tab PO DAILY 09/18/23 09/18/23 History Allergy/AdvReac Type Severity Reaction Status Date / Time No Known Allergies Allergy Verified 09/18/23 12:23 Surgical History H/O knee surgery Social History Smoking Status: Never smoker Physical Exam Const alert and oriented x3 General Appearance: cooperative HEENT normocephalic and head/scalp atraumatic Eyes PERRL and EOMs intact bilaterally Neck supple, no JVD and no carotid bruits Resp normal respiratory effort, normal air movement and clear to auscultation bilaterally Cardio regular rate and no murmurs GI normal to inspection, nondistended, normoactive bowel sounds and soft to palpation Extremity normal capillary refill General Extremity: no tenderness to palpation of joints or extremities; Negative for edema Skin no rashes or lesions noted and no wounds General Skin Exam: no breakdown Neuro CN's II-XII intact bilaterally Psych affect normal Appearance: appropriate Lab / Micro Data 09/19/23 05:25 09/19/23 05:25 Labs: Laboratory Results - last 24 hr 09/18/23 12:29: WBC 7.7, RBC 4.64, Hgb 14.5, Hct 43.6, MCV 94.0, MCH 31.3, MCHC 33.3, RDW Std Deviation 43.6, RDW Coeff of Zi 12.5, Plt Count 223, MPV 11.5, Immature Gran % (Auto) 0.400, Neut % (Auto) 62.7, Lymph % (Auto) 26.2, [place] % (Auto) 8.2, Eos % (Auto) 2.0, Baso % (Auto) 0.5, Absolute Neuts (auto) 4.8, Absolute Lymphs (auto) 2.01, Nucleated RBC % 0, Sodium 142, Potassium 3.9, C hloride 111 H, Carbon Dioxide 25.0, Anion Gap 6, BUN 32 H, Creatinine 2.05 H, Estim Creat Clear Calc 41.17, Est GFR (MDRD) Af Amer 41 L, Est GFR (MDRD) Non-Af 34 L, BUN/Creatinine Ratio 15.6, Glucose 134 H, Calcium 8.9, Total Bilirubin 0.90, Direct Bilirubin 0.21, AST 24, ALT 30, Alkaline Phosphatase 100, Total Protein 7.7, Albumin 3.7, Globulin 4.0 09/19/23 05:25: WBC 12.5 H, RBC 4.33 L, Hgb 13.6, Hct 41.8, MCV 96.5 H, MCH 31.4, MCHC 32.5, RDW Std Deviation 43.5, RDW Coeff of Zi 12.2, Plt Count 192, MPV 11.0, Sodium 140, Potassium 4.2, Chloride 110 H, Carbon Dioxide 22.0, Anion Gap 8, BUN 28 H, Creatinine 2.20 H, Estim Creat Clear Calc 38.51, Est GFR (MDRD) Af Amer 38 L, Est GFR (MDRD) Non-Af 32 L, BUN/Creatinine Ratio 12.7, Glucose 132 H, Calcium 8.6 Imaging Radiology Impression Abdomen/Pelvis CT 09/18/23 12:42 IMPRESSION: 1. Mild right hydronephrosis and mild right hydroureter secondary to 2 mm partially obstructing stone in the right distal ureter. 2. 3 mm nonobstructing stone in the left kidney. 3. Sigmoid diverticulosis without diverticulitis. 4. Mildly prominent small hiatal hernia. 5. Multiple small radiolucent gallstones layering in the dependent portions of the gallbladder fossa. These calculi were present previously and have increased slightly in number. Electronically Signed: Moises Celestin MD at 13:18 EDT ,
[2023-09-19 11:00] LABS: Bacteria 0 SEEN /hpf (None Seen); Mucous, Urine 0 SEEN /hpf (<or=2+); Red Blood Cells-Urine 0 SEEN /hpf (0-5); Squamous Epithelial Cells - UA 0 SEEN /hpf (0-5); White Blood Cells 0 SEEN /hpf (0-5)
[2023-09-19 11:10] LABS: Color, Urine Yellow (Yellow); Glucose, Dipstick 250 mg/dl (Normal); Ketone-Dipstick 50 mg/dl (Negative); Leukocyte Esterase-Dipstick Negative /ul (Negative); Nitrite-Dipstick Negative (Negative); Occult Blood-Urine 10 /ul (Negative); Protein-Dipstick 15 mg/dl (Negative); Urine Bilirubin Dipstick Negative (Negative); Urine Clarity Clear (Clear); Urine Urobilinogen Normal (Normal)
[2023-09-19] MEDS: 0.9% Saline Lock 10 ML Syringe IV ×2 (12:14→13:30)
[2023-09-19] MEDS: 0.9% Normal Saline (1000mL) 1,000 ML 100 ML IV ×2 (13:32→22:25)
[2023-09-19] MEDS: Tamsulosin HCl 0.4 MG Capsule PO (17:42)
[2023-09-19] MEDS: MELATONIN 3 MG TABLET PO (23:51)
[2023-09-20 03:05] VITALS: BP 146/67; PULSE 57; RESP 18; TEMP 37.3; O2SAT 98
[2023-09-20 06:23] LABS: Absolute Lymphocyte Count 1.36 X10^3/uL (0.83-4.51); Absolute Neutrophil Count 9.8 X10^3/uL (2.0-7.7); Basophil# 0.02 X10^3/uL; Basophil% 0.2 % (0-1); Eosinophil# 0.03 X10^3/uL; Eosinophils% 0.2 % (0-5); Lymphocyte # 1.36 X10^3/ul (0.83-4.51); Mean Corp Hgb Conc 32.5 g/dL (32-36); Mean Corpuscular Hgb 31.5 pg (27.0-32.0); Mean Corpuscular Volume 96.9 fL (80-94); Mean Platelet Vol. 11.2 fl (6.2-12.0); Monocyte# 1.06 X10^3/uL; Monocyte% 8.6 % (0-10); NRBC Flagged by Analyzer 0 % (0-5); Neutrophil # 9.79 X10^3/uL (2.7-7.7); Neutrophil % 79.4 % (47-70); Platelet Count 173 K/mm3 (150-450); RBC Distribution Width CV 12.5 % (11.6-14.6); RBC Distribution Width SD 44.7 fl (35.1-43.9); Red Blood Count 4.13 M/mm3 (4.6-6.2); White Blood Count 12.3 K/mm3 (4.4-11.0)
[2023-09-20 06:30] LABS: Anion Gap 5 (5-15); BUN 25 mg/dL (7-18); BUN/Creat Ratio 12.1 RATIO (10-20); Calcium,Total 8.4 mg/dL (8.5-10.1); Chloride 109 mmol/L (98-107); Creatinine, Serum 2.07 mg/dL (0.70-1.30); EST Glomerular Filtration Rate 34 mL/min (>60); Est Glom Filt Rate - Afr Amer 41 mL/min (>60); Estimated Creatinine Clearance 40.93 ml/min; Glucose 126 mg/dL (74-106); Sodium Level 139 mmol/L (136-145)
[2023-09-20 07:21] VITALS: O2SAT 96
[2023-09-20 09:00] VITALS: PULSE 60; O2SAT 94
[2023-09-20] MEDS: Heparin Injection (Vial) 5,000 UNIT/ML VIAL 5000 UNIT SC (09:02)
[2023-09-20] MEDS: Aspirin 81 MG TAB.CHEW PO (09:03)
[2023-09-20 09:05] VITALS: BP 160/65; PULSE 94; RESP 14; TEMP 37.6; O2SAT 94
[2023-09-20] MEDS: Acetaminophen 325 MG Tablet 650 MG PO (09:13)
--- NOTE | 2023-09-20 09:58 | PCM.DC ---
Discharge Instructions Diet Discharge Diet: Low fat / Low cholesterol Activity Discharge Activity: Return to Normal Activity Dressing / Incision Call your doctor if you observe: Fever of 101 or Higher, Shortness of breath, Dizziness, Fainting spells, Swelling in the ankles, Chest pain and Increased palpitations (irregular heartbeat) Follow Up Care Test Results: Test results from this visit will be discussed in further detail at your follow-up appointment, if applicable. Discharge Plan Admission Admit Date/Time: 09/18/23 14:21 Attending Provider: London Schwab Primary Care Provider: Dipesh Mcgee Consulting Providers: Avelino Coreas; Jose Godfrey Instructions Additional Instructions / Restrictions: Follow-up with your PCP in 3 to 5 days to monitor your kidney function and to make sure it is returning back to normal. Also follow-up with your urologist as an outpatient within the next couple of weeks Discharge Orders/Prescriptions Prescriptions: New tamsulosin 0.4 mg Capsule 0.4 mg PO DAILY@1730 14 Days Qty: 14 0RF Continued atorvastatin 40 mg tablet 40 mg PO DAILY dapagliflozin propanediol 5 mg tablet 5 mg PO DAILY coenzyme Q10 [CoQ-10] 100 mg capsule 100 mg PO DAILY cholecalciferol (vitamin D3) [Vitamin D3] 125 mcg (5,000 unit) tablet 125 mcg PO DAILY mecobalamin (vitamin B12) 1 tab PO DAILY Patient Comments: PT UNSURE OF STRENGTH Held losartan 100 mg tablet 100 mg PO DAILY Hold Instructions: Resume on 09/22/23. Referrals / Follow Up: Dipesh Mcgee MD [Primary Care Provider] - Within 1 Week Disposition Disposition (needs filled in before D/C Order can be placed): Home, Self Care
[2023-09-20 10:00] VITALS: BP 144/78; PULSE 90; RESP 14; TEMP 36.8; O2SAT 94
--- NOTE | 2023-09-20 10:28 | CASEMGMT ---
STEPHAN SALDIVAR Assessment Face to Face with patient for initial transition planning/care coordination assessment. STEPHAN SALDIVAR introduced self and role at [facility], pt voices understanding. Pt is A&Ox4 and is resting comfortably in bed and is calm. Pt at bedside. Care providers, pharmacy, and demographics verified. Admitting dx: Kidney Stone with mild hydronephrosis LACE Strata: 1 PCP: Dipesh Mcgee Specialists: Lyudmila (Urologist) Preferred Pharmacy: [facility] Insurance: [employer] A/B, [employer] Commercial Prescription Benefit: Yes LNOK: Christie Chance (W) Living Arrangements: Pt lives with his in a single story home with two steps to enter ADLs/IADLs: Ind Transportation: Self, . Denies needs DME: Denies all DME uses or needs HHC/SNF: Denies history or needs Pt?s goal: Home Plan: Home no needs. 6-Click is 24. Pt feels safe discharging home today via his with no additional needs. Pt denies the need for HHC, OP Tx, or SNF. Pt denies further questions or concerns at this time. Pt RN notified and is to DC the pt shortly. Tatianna Corona RN, CM
--- NOTE | 2023-09-20 14:24 | DS.PCM_ITS ---
Providers Date of Admission: 09/18/23 Primary Care Physician: Dr. Dipesh Mcgee MD Consultations 09/18/23 15:07 Consult: Urology Routine Consulting Provider: Avelino Coreas Reason for Consult: right 2mm kidney stone w/ mild hydronephrosis/hydroureter EMERGENT Consult: No MD Notified: Yes Date Notified: 09/18/23 Time Notified: 16:05 Method of Notification: Verbal Reason For Visit: KIDNEY STONE WITH MILD HYDRONEPHROSIS Diagnosis Discharge Diagnosis (1) Hydroureter, right: Status: Acute Code(s): N13.4 - Hydroureter (2) Renal colic on right side: Status: Acute Code(s): N23 - Unspecified renal colic Medications at Discharge Home Medications atorvastatin 40 mg tablet 40 mg PO DAILY 09/18/23 cholecalciferol (vitamin D3) 125 mcg (5,000 unit) tablet (Vitamin D3) 125 mcg PO DAILY 09/18/23 coenzyme Q10 100 mg capsule (CoQ-10) 100 mg PO DAILY 09/18/23 dapagliflozin propanediol 5 mg tablet 5 mg PO DAILY 09/18/23 losartan 100 mg tablet 100 mg PO DAILY high blood pressure 09/18/23 mecobalamin (vitamin B12) 1 tab PO DAILY 09/18/23 tamsulosin 0.4 mg capsule 0.4 mg PO DAILY@1730 14 days #14 caps 09/20/23 Hospital Course Operations None Procedures None Summary of Care Provided Minutes Spent on Discharge: 34 Hospital Course: Per HPI: TINY ALVARADO, is a 68 M who presented to [facility] ED on 09/18/2023 with right flank pain. Patient has prior history of kidney stones and suspected he might have another one so he came in for further evaluation. CT abdomen pelvis showed mild right hydronephrosis and mild right hydroureter secondary to 2 mm partially obstructing stone in the right distal ureter. Also showed a 3 mm nonobstructing stone in the left kidney with no hydronephrosis. Patient was afebrile and hemodynamically stable on room air. He has history of CKD stage IIIa with baseline creatinine around 1.4 and creatinine on admit was 2.05 with BUN 32. Patient had fairly significant pain with some nausea and was given doses of IV morphine and IV Zofran in the ED with mild to moderate relief of symptoms. He and were unsure if he needed admission but he noted that it had been several years since his last kidney stone and his recent p.o. intake has been poor, and he was concerned about how his symptoms could progress if he is unable to pass a stone. Hospitalist was then contacted for admission. I saw the patient at bedside in the ED, was present. Patient was sitting up fairly comfortably in bed, in no acute distress. He was reporting mild right-sided flank pain that was wrapping around to the right abdominal area. Stated that the pain seemed to be shifting more forward over the past hour or so. He did states that the IV pain and nausea medications were helpful for him. He denies any fevers or chills. He did report some generalized abdominal fullness and stated he had minimal appetite. He denied any pain with urination or difficulty urinating. Denied any hematuria. His prior kidney stones all past on their own, has never required stent placement or lithotripsy. He otherwise denied any acute concerns. Hospital Course: 1. Right-sided nephrolithiasis with mild hydronephrosis/KIN on CKD 3 A?[age]-year-old male presents to the hospital with right flank pain consistent with kidney stone. He has had an in the past. CT of the abdomen and pelvis demonstrated a 2 mm stone in the right ureter causing mild hydronephrosis and a 3 mm nonobstructing stone in the left kidney is not causing any issues. Urology was consulted and felt that the stone will pass on its own and no direct surgical intervention needs to be done at this time. He did have a slight increase in his white blood cell count which could be due to stress and the stone however a UA was obtained and it was negative for a UTI. He is feeling much better today and denies any significant abdominal pain., I discussed with him the plan for possible discharge today he expressed understanding the risk benefits of going home and would like to go home today. Since he was not endorsing any significant pain there is a possibility that the stone had passed so I elected not to prescribe any pain medications at this time as he says that he has been feeling pretty good all night. Will continue with Flomax and have him follow-up with his urologist as an outpatient. His baseline creatinine is about 1.4 and on admission he was over 2 started on IV fluids and he has had some improvement from the peak of 2.2 down to 2.07. I decided to hold his losartan for a few days and encouraged him to remain hydrated while at home. I do recommend outpatient follow-up with his PCP to monitor his kidney function. 2. Essential hypertension, hyperlipidemia chronic medical conditions complicate his care. His home medications were continued where appropriate. He was also found to have incidental cholelithiasis that is asymptomatic at this time but would warrant outpatient monitoring Physical Exam Narrative General: Alert, Oriented x3, Cooperative, No apparent distress HEENT: Atraumatic, PERRLA, EOMI, Normocephalic Oral: Moist Mucosa Neck: Supple, No JVD Lungs: Diminished, Normal air movement, No rhonchi, No wheeze, No rales Cardiovascular: Regular rate, Regular Rhythm, Normal S1, Normal S2, No murmurs Abdomen: Soft, Non Tender, Non-Distended, No Hepato-splenomegaly Extremities: No edema, Capillary Refill Less than 3 Seconds Skin: No rashes, No breakdown Musculoskeletal: No Tenderness to Palpation of Joints or Extremities Neurological: No focal neurological deficits, Motor Exam 5/5 strength throughout, Sensory exam intact to light touch and pain Psych/Mental Status: Normal Affect, Appropriate Weight / BMI Weight Weight: 231 lb 4.8 oz Body Mass Index (BMI) 32.2 ABG / Lab / Microbiology Data 09/20/23 05:58 09/20/23 05:58 Laboratory: Laboratory Results - last 24 hr 09/20/23 05:58: WBC 12.3 H, RBC 4.13 L, Hgb 13.0, Hct 40.0, MCV 96.9 H, MCH 31.5, MCHC 32.5, RDW Std Deviation 44.7 H, RDW Coeff of Zi 12.5, Plt Count 173, MPV 11.2, Immature Gran % (Auto) 0.600, Neut % (Auto) 79.4 H, Lymph % (Auto) 11.0 L, Bailey % (Auto) 8.6, Eos % (Auto) 0.2, Baso % (Auto) 0.2, Absolute Neuts (auto) 9.8 H, Absolute Lymphs (auto) 1.36, Nucleated RBC % 0, Sodium 139, Potassium 4.0, Chloride 109 H, Carbon Dioxide 25.0, Anion Gap 5, BUN 25 H, C reatinine 2.07 H, Estim Creat Clear Calc 40.93, Est GFR (MDRD) Af Amer 41 L, Est GFR (MDRD) Non-Af 34 L, BUN/Creatinine Ratio 12.1, Glucose 126 H, Calcium 8.4 L D/C Instructions Discharge Diet: Low fat / Low cholesterol Call your doctor if you observe: Fever of 101 or Higher, Shortness of breath, Dizziness, Fainting spells, Swelling in the ankles, Chest pain and Increased palpitations (irregular heartbeat) Meaningful Use Info Meaningful Use Meaningful Use Diagnoses (Choose all that apply): None applicable Ischemic Stroke Statin Dosing Therapy Reference: STATIN DOSE THERAPY REFERENCE: * Patients > 75 years receive moderate or high dose statin therapy. * Patients 75 years or YOUNGER should receive HIGH intensity statin dose unless contraindicated. You will be required to document reason for non-treatment if statin daily dose does not meet guidelines. HIGH DOSE STATIN THERAPY DAILY Atorvastatin > than or = to 40 mg Rosuvastatin > than or = to 20 mg Amlodipine + Atorvastatin > than or = to 2.5/40 mg Ezetimibe + Simvastatin 10/80 mg Simvastatin 80mg Discharge Plan Admission Admit Date/Time: 09/18/23 14:21 Attending Provider: London Schwab Primary Care Provider: Dipesh Mcgee Consulting Providers: Avelino Coraes; Jose Godfrey Instructions Additional Instructions / Restrictions: Follow-up with your PCP in 3 to 5 days to monitor your kidney function and to make sure it is returning back to normal. Also follow-up with your urologist as an outpatient within the next couple of weeks Discharge Orders/Prescriptions Prescriptions: New tamsulosin 0.4 mg Capsule 0.4 mg PO DAILY@1730 14 Days Qty: 14 0RF Continued atorvastatin 40 mg tablet 40 mg PO DAILY dapagliflozin propanediol 5 mg tablet 5 mg PO DAILY coenzyme Q10 [CoQ-10] 100 mg capsule 100 mg PO DAILY cholecalciferol (vitamin D3) [Vitamin D3] 125 mcg (5,000 unit) tablet 125 mcg PO DAILY mecobalamin (vitamin B12) 1 tab PO DAILY Patient Comments: PT UNSURE OF STRENGTH Held losartan 100 mg tablet 100 mg PO DAILY Hold Instructions: Resume on 09/22/23. Referrals / Follow Up: Dipesh Mcgee MD [Primary Care Provider] - Within 1 Week Disposition Disposition (needs filled in before D/C Order can be placed): Home, Self Care Charges/Coding Visit Charges Inpatient E&M: 65796 Disch Hosp >30min
== END 2023-09-20 10:42 | disposition home or self-care (01) | DRG 694 ==
LOC: ED 12:57 → MS3 14:57
PROVIDERS: Admitting Provider Hospitalist; Emergency Provider Emergency Medicine; PCP Family Medicine; Visit Provider Family Medicine
DX: N13.2 Hydronephrosis with renal and ureteral calculous obstruction (principal); N13.4 Hydroureter; N17.9 Acute kidney failure, unspecified; N18.31 Chronic kidney disease, stage 3a; I12.9 Hypertensive chronic kidney disease with stage 1 through stage 4 chronic kidney disease, or unspecified chronic kidney disease; E66.9 Obesity, unspecified; E78.00 Pure hypercholesterolemia, unspecified; K80.20 Calculus of gallbladder without cholecystitis without obstruction; Z68.32 Body mass index [BMI] 32.0-32.9, adult; Z79.899 Other long term (current) drug therapy
CPT/HCPCS: 36415; 74176; 80048; 80076; 81001; 85025; 85027; 94668; 99284; J7030; J7120; A4216; J2405

== ENCOUNTER → 2023-09-28 | Outpatient (CLI) | payer MEDICARE, OTHER, SELFPAY ==
[2023-09-28 15:50] LABS: Hematocrit 43.3 % (40-54); Mean Corp Hgb Conc 32.3 g/dL (32-36); Mean Corpuscular Hgb 31.4 pg (27.0-32.0); Mean Corpuscular Volume 97.1 fL (80-94); Mean Platelet Vol. 11.3 fl (6.2-12.0); Platelet Count 248 K/mm3 (150-450); RBC Distribution Width CV 12.2 % (11.6-14.6); RBC Distribution Width SD 43.4 fl (35.1-43.9); Red Blood Count 4.46 M/mm3 (4.6-6.2); White Blood Count 8.6 K/mm3 (4.4-11.0)
[2023-09-28 15:52] LABS: Anion Gap 6 (5-15); BUN 17 mg/dL (7-18); BUN/Creat Ratio 13.5 RATIO (10-20); Calcium,Total 9.6 mg/dL (8.5-10.1); Chloride 107 mmol/L (98-107); Creatinine, Serum 1.26 mg/dL (0.70-1.30); EST Glomerular Filtration Rate 60 mL/min (>60); Est Glom Filt Rate - Afr Amer 73 mL/min (>60); Glucose 127 mg/dL (74-106); Iron 91 ug/dL (65-175); Potassium 4.4 mmol/L (3.5-5.1); Sodium Level 140 mmol/L (136-145); Vitamin D,25 Hydroxy 62.4 ng/mL
[2023-09-28 15:58] LABS: PTHIN 50.1 pg/mL (18.4-80.1)
== END | disposition home or self-care (01) ==
LOC: MFPLAB 11:24
PROVIDERS: PCP Family Medicine; Visit Provider Family Medicine
DX: I12.9 Hypertensive chronic kidney disease with stage 1 through stage 4 chronic kidney disease, or unspecified chronic kidney disease (principal); N18.30 Chronic kidney disease, stage 3 unspecified
CPT/HCPCS: 36415; 80048; 82306; 83540; 83970; 85027

== ENCOUNTER → 2024-04-26 | Outpatient (CLI) | payer MEDICARE, OTHER, SELFPAY ==
[2024-04-26 15:13] LABS: Hematocrit 45.2 % (40-54); Mean Corp Hgb Conc 33.2 g/dL (32-36); Mean Corpuscular Hgb 32.1 pg (27.0-32.0); Mean Corpuscular Volume 96.6 fL (80-94); Mean Platelet Vol. 11.4 fl (6.2-12.0); Platelet Count 212 K/mm3 (150-450); RBC Distribution Width CV 12.8 % (11.6-14.6); RBC Distribution Width SD 45.1 fl (35.1-43.9); Red Blood Count 4.68 M/mm3 (4.6-6.2); White Blood Count 8.6 K/mm3 (4.4-11.0)
[2024-04-26 18:06] LABS: ALB/GLOB Ratio 1.3 RATIO (0.9-2.4); AST(SGOT) 24 U/L (<=37); Alanine Aminotransfer ALT/SGPT 27 U/L (<=46); Albumin, Serum 4.3 g/dL (3.4-4.8); Alkaline Phosphatase 88 U/L (40-129); Anion Gap 12 (5-15); BUN 20 mg/dL (4-19); BUN/Creat Ratio 15.3 RATIO (10-20); Calcium,Total 9.8 mg/dL (7.6-11.0); Carbon Dioxide 23.5 mmol/L (21.0-32.0); Chloride 104 mmol/L (98-108); Creatinine, Serum 1.32 mg/dL (0.70-1.20); EST Glomerular Filtration Rate 58 (>60); Globulin 3.3 g/dL (2.2-4.2); Glucose 123 mg/dL (70-99); PSA,Total - Annual Screen 5.05 ng/mL (0.02-4.00); Potassium 4.9 mmol/L (3.3-5.1); Protein, Total 7.6 g/dL (5.9-8.4); Sodium Level 140 mmol/L (133-145); Total Bilirubin 0.72 mg/dL (0.00-1.30); Vitamin B12 1546 pg/mL (180-914)
[2024-04-26 19:11] LABS: Iron 99 ug/dL (65-175)
[2024-04-26 19:26] LABS: Microalbumin,Random Urine < 12.0 mg/L (NO RANGE EST.)
[2024-04-27 08:32] LABS: Microalbumin:Creatinine Ratio UNABLE TO CALCULATE mg/g CRE
== END | disposition home or self-care (01) ==
LOC: MFPLAB 11:25
PROVIDERS: PCP Family Medicine; Referring Provider Family Medicine; Visit Provider Family Medicine
DX: Z12.5 Encounter for screening for malignant neoplasm of prostate (principal); E11.65 Type 2 diabetes mellitus with hyperglycemia; E11.22 Type 2 diabetes mellitus with diabetic chronic kidney disease; N18.30 Chronic kidney disease, stage 3 unspecified
CPT/HCPCS: 36415; 80053; 82043; 82570; 82607; 83540; 84153; 84403; 84443; 85027; G0103

== ENCOUNTER 2024-09-05 11:36 | Emergency (ER) | payer MEDICARE, OTHER, SELFPAY ==
[2024-09-05 11:36] VITALS: BP 186/82; PULSE 56; RESP 14; TEMP 36.2; O2SAT 98; BMI 34.0
--- NOTE | 2024-09-05 11:48 | EKG12_ITS ---
Test Reason : SHOULDER PAIN Blood Pressure : */* mmHG Vent. Rate : 52 BPM Atrial Rate : 52 BPM P-R Int : 158 ms QRS Dur : 150 ms QT Int : 470 ms P-R-T Axes : -4 -1 -12 degrees QTcB Int : 437 ms Sinus bradycardia Right bundle branch block T wave abnormality, consider inferior ischemia Abnormal ECG Confirmed by ALMITA TORRES, ALLYSSA ([id number]), rewrite editor EVELYN ODOM ([id number]) on 09/06/2024 8:33:38 AM Referred By: Confirmed By: ALLYSSA RECIO MD
--- NOTE | 2024-09-05 11:52 | EX.ED.UPPERE ---
HPI History of Present Illness Chief Complaint: Upper Extremity Injury Narrative Narrative: 69-year-old male past medical history of hypertension presents with a left shoulder/trapezial pain that he has had for the last 4 to 5 days. He describes it as sharp and stabbing worse with certain movements. He denies any recent injury but does state that he has been working in his yard a lot, using his hands and arms. He is right-hand dominant. He was able to go to the eye doctor today and have his eyes dilated, but presents to the emergency department because of the pain. Additionally, he does state that he has an appointment with his primary care provider today at 5 PM, approximately 5 hours from now, but the pain was becoming more severe so he presents to the emergency department for evaluation. He denies any nausea or vomiting, no shortness of breath or chest pain, no other symptoms. He did state that he tried to put it hot water on it in the shower, and he states as he was drying off it did not make it worse. [facility] Medical History Diverticulitis Kidney stones High cholesterol HTN (hypertension) Home Medications ?Medication ?Instructions ?Recorded ?Last Taken ?Type cholecalciferol (vitamin D3) 125 125 mcg PO DAILY 09/18/23 09/18/23 History mcg (5,000 unit) tablet (Vitamin D3) coenzyme Q10 100 mg capsule 100 mg PO DAILY 09/18/23 09/18/23 History (CoQ-10) dapagliflozin propanediol 5 mg 5 mg PO DAILY 09/18/23 09/18/23 History tablet losartan 100 mg tablet 100 mg PO DAILY high blood pressure 09/18/23 09/18/23 History Held on 09/20/23. Instructions: Resume on 09/22/23. mecobalamin (vitamin B12) 1 tab PO DAILY 09/18/23 09/18/23 History tamsulosin 0.4 mg capsule 0.4 mg PO DAILY@1730 14 days #14 09/20/23 Unknown Rx caps atorvastatin 80 mg tablet 80 mg PO DAILY 09/05/24 Unknown History Allergy/AdvReac Type Severity Reaction Status Date / Time No Known Allergies Allergy Verified 09/05/24 11:37 Surgical History H/O knee surgery Social History Smoking Status: Never smoker ROS ROS ED ROS Narrative Review of systems positive for left trapezial pain more towards neck. No fevers or chills, worse with certain movements of the left arm and torso. No recent trauma. No nausea or vomiting, no shortness of breath, no chest pain. EXAM Physical Exam Narrative Exam Narrative: Afebrile. Vital signs noted. Nontoxic-appearing. Cardiovascular examination reveals mild bradycardia. Lungs clear to auscultation bilaterally. Abdomen is soft and nontender. There is reproducible left trapezial pain more in the posterior portion. No tenderness to palpation of the left shoulder joint. Full range of motion without clinical dislocation. Palpable radial pulse, left. Const Vital Signs: 09/05/24 11:36 Temperature 97.1 F L Temperature Source Temporal Pulse Rate 56 L Respiratory Rate 14 Blood Pressure 186/82 H Blood Pressure Mean 116 Pulse Ox 98 Oxygen Delivery Method Room Air MDM MDM MDM Narrative Medical decision making narrative: Differential diagnosis includes but not limited to ACS versus trapezial strain/musculoskeletal pain versus cervical radiculopathy. He is not having neck pain that is midline so I do not feel imaging is indicated. This essentially pinpoint pain in his trapezius muscle so I doubt ACS and history and physical does not support this. EKG was obtained and interpreted by myself independently as sinus bradycardia at [address] changes. No STEMI. There is a right bundle branch block. No prior EKG with which to compare. As it is reproducible, I do think that he has more of a trapezial strain. I discussed with him long-term use of muscle relaxers, and given his age, this should be started by his primary care provider at their discretion. However, he will be given a one-time dose of Norflex 60 mg IM here. He will apply heat and ice alternatively and continue [id number] anti-inflammatories as needed. I strongly suggested he follow-up with his primary care provider today. I feel he can be discharged safely home with follow-up. Return instructions to the emergency department were reviewed. Disposition is discharged home in stable condition. History & Record Review Additional record(s) reviewed:: No prior records (No prior ED visits/EKG) Discharge Plan Triage Chief Complaint: Upper Extremity Injury ED Provider: Moises Brizuela Dx/Rx/DC Orders Clinical Impression: Trapezius muscle strain, Pain of left shoulder region Instructions: ED Neck Sprain or Strain, ED Muscle Strain, Extremity, ED Shoulder Pain, Uncertain Cause Prescriptions: No Action losartan 100 mg tablet 100 mg PO DAILY dapagliflozin propanediol 5 mg tablet 5 mg PO DAILY coenzyme Q10 [CoQ-10] 100 mg capsule 100 mg PO DAILY cholecalciferol (vitamin D3) [Vitamin D3] 125 mcg (5,000 unit) tablet 125 mcg PO DAILY mecobalamin (vitamin B12) 1 tab PO DAILY Patient Comments: PT UNSURE OF STRENGTH tamsulosin 0.4 mg Capsule 0.4 mg PO DAILY@1730 14 Days Qty: 14 0RF atorvastatin 80 mg tablet 80 mg PO DAILY Primary Care Provider: Dipesh Mcgee Referrals: Dipesh Mcgee MD [Primary Care Provider] - Keep Lauren appointment Activity Restrictions/Additional Instructions: Continue [id number] anti-inflammatories. Apply heat and ice alternatively. Follow-up with your primary care provider today at 5 PM as scheduled. Return with new or worsening symptoms. Print Language: Spanish Disposition Disposition: Home, Self Care
[2024-09-05] MEDS: Orphenadrine 60 MG/2 ML Ampul IM (11:56)
[2024-09-05 12:22] VITALS: BP 173/71; PULSE 61; RESP 18; TEMP 36.6; O2SAT 97
== END 2024-09-05 12:24 | disposition home or self-care (01) ==
LOC: ED 11:57
PROVIDERS: Emergency Provider Emergency Medicine; PCP Family Medicine; Visit Provider Emergency Medicine
DX: M25.512 Pain in left shoulder (principal); I10 Essential (primary) hypertension; E78.00 Pure hypercholesterolemia, unspecified; Z79.899 Other long term (current) drug therapy; S29.012A Strain of muscle and tendon of back wall of thorax, initial encounter
CPT/HCPCS: 93005; 96372; 99282